=== PATIENT | male | born 1940 | race Caucasian/White ===

== ENCOUNTER 2018-03-01 00:43 | Inpatient (IN) ==
[2018-03-01] MEDS ORDERED: Morphine Inj 4 MG/ML Vial IV.PUSH ONE (02:49)
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
[2018-03-01] MEDS ORDERED: Morphine Inj 4 MG/ML Vial IV.PUSH PRN (04:25)
--- NOTE | 2018-03-01 06:26 | MR ---
EXAM DATE: 03/01/2018 6:07 AM EDT AGE/SEX: 77 years / Male INDICATIONS: Fracture. Fall. CLINICAL DATA: This is the patient's initial encounter. Patient reports that signs and symptoms have been present for 1 day and indicates a pain score of 6/10. MEDICAL/SURGICAL HISTORY: Hypertension. CABG. Cholecystectomy. COMPARISON: No prior exams available for comparison. TECHNIQUE: Multiplanar, multisequence MRI of the thoracic spine was performed. FINDINGS: Vertebrae: Multilevel osteophyte formation. There is disc space narrowing of moderate severity at T11 -12 with slight nonacute wedging of the T11 vertebral body. The spinal canal is widely patent. There is perivertebral edema, and abnormal increased T2 signal within the anterior one half of the T7-8 int ervertebral disc space. There is a linear cleft of increased T2 signal seen on sagittal image 5 of se paloma 8 through the anterior longitudinal ligament. T1-T2: The thecal sac has a normal diameter. No evidence of disc bulge or protrusion. T2-T3: The thecal sac has a normal diameter. No evidence of disc bulge or protrusion. T3-T4: The thecal sac has a normal diameter. No evidence of disc bulge or protrusion. T4-T5: The thecal sac has a normal diameter. No evidence of disc bulge or protrusion. T5-T6: The thecal sac has a normal diameter. No evidence of disc bulge or protrusion. T6-T7: The thecal sac has a normal diameter. No evidence of disc bulge or protrusion. T7-T8: The thecal sac has a normal diameter. No evidence of disc bulge or protrusion. T8-T9: The thecal sac has a normal diameter. No evidence of disc bulge or protrusion. T9-T10: The thecal sac has a normal diameter. No evidence of disc bulge or protrusion. T10-T11: Moderate facet and ligamentum flavum hypertrophic changes are seen with moderate to severe canal stenosis. There is moderate right foraminal narrowing. T11-T12: Mild diffuse disc osteophyte complex with no canal or foraminal narrowing. T12-L1: The thecal sac has a normal diameter. No evidence of disc bulge or protrusion. CONCLUSION: 1. There is perivertebral edema, and interruption of the anterior longitudinal ligament focally at t he T7-8 level with fluid signal extending into the anterior one half of the intervertebral disc space . There is also trace facet joint fluid at T7-8 bilaterally. 2. Nonacute slight wedging of the T11 vertebral body. 3. Canal stenosis of moderate severity at T10-11 secondary to prominent facet and ligamentum flavum hypertrophic changes. Electronically signed by: Albert Peters MD 03/01/2018 6:24 AM EDT
--- NOTE | 2018-03-01 06:28 | MR ---
EXAM DATE: 03/01/2018 6:22 AM EDT AGE/SEX: 77 years / Male INDICATIONS: Fracture. Fall. CLINICAL DATA: This is the patient's initial encounter. Patient reports that signs and symptoms have been present for 1 day and indicates a pain score of 5/10. MEDICAL/SURGICAL HISTORY: Hypertension. CABG. Cholecystectomy. COMPARISON: No prior exams available for comparison. TECHNIQUE: Multiplanar, multisequence MRI of the lumbar spine was performed without contrast. Patie nt was scanned in a sitting position; neutral, flexion, and extension scans were performed in the sa gittal plane. FINDINGS: The most caudal-appearing lumbar vertebra is numbered as L5. There is diffuse disc desiccation. There is intervertebral disc space calcification at L2-3 and L3-4. Nonacute slight wedging of the T11 vert ebral body identified. There are no acute fractures seen. The bone marrow signal intensity is normal. T12-L1: The thecal sac has a normal diameter. No evidence of disc bulge or protrusion. The neural foramina are patent bilaterally. L1-L2: The thecal sac has a normal diameter. No evidence of disc bulge or protrusion. The neural foramina are patent bilaterally. L2-L3: Elevated trace disc bulge and moderate facet and ligamentum flavum hypertrophy with mild lef t foraminal narrowing. L3-L4: Mild diffuse disc bulge and facet and ligamentum flavum hypertrophy with mild bilateral fora qi narrowing. L4-L5: L5 1 diffuse disc bulge is present. There is moderate facet and ligamentum flavum hypertroph y. There is mild abutment of the L4 exiting nerves and there is moderate bilateral foraminal stenosis . L5-S1: Mild disc bulge and severe facet arthropathy. No significant canal stenosis. Severe right fo raminal narrowing with abutment of the L5 exiting nerves. CONCLUSION: 1. Degenerative changes are seen with no evidence for acute fracture. 2. Nonacute slight wedging of the T11 vertebral body. Electronically signed by: Albert Peters MD 03/01/2018 6:27 AM EDT
[2018-03-01] MEDS: Sod Chloride 0.9% Inj 1,000 ML IV.CONT SCH ×2 (06:41→21:21)
[2018-03-01] MEDS: Meloxicam 15 MG Tablet PO SCH (09:53)
[2018-03-01] MEDS: Budesonide-Formoterol 80/4.5 MCG 6.9 GM Inhaler INH SCH ×2 (09:55→21:22)
[2018-03-01] MEDS: Famotidine 20 MG Tablet PO SCH ×2 (09:56→21:11)
[2018-03-01] MEDS: Furosemide 20 MG Tablet PO SCH (09:57)
[2018-03-01] MEDS: Finasteride 5 MG Tablet PO SCH (09:57)
[2018-03-01] MEDS: Metoprolol Tartrate 50 MG Tablet PO SCH ×2 (09:58→21:11)
[2018-03-01] MEDS: Senna/Docusate Sodium 8.6/50 MG Tablet PO SCH ×2 (09:58→21:11)
[2018-03-01] MEDS: Morphine Inj 4 MG/ML Vial IV.PUSH PRN ×3 (12:16→21:11)
[2018-03-01] MEDS: Montelukast 10 MG Tablet PO SCH (17:26)
--- NOTE | 2018-03-01 20:13 | P.CONNS ---
History of Present Illness Service: Neurosurgery Primary Care Provider: UNKNOWN [facility] - History History Provided By: Patient - Medical History Medical History: Medical History (Last Updated 03/01/18 @ 11:10 by Rachele Perez) Cataract (Acute) Ankle fracture (Acute) Shoulder dislocation (Acute) Asthma BPH (benign prostatic hyperplasia) HTN (hypertension) Hypercholesteremia - Surgical History Surgical History: Surgical History (Last Reviewed 03/01/18 @ 11:01 by Rachele Perez) Hx of CABG - Tobacco History Second Hand Smoke Exposure: No Tobacco Use In Past 30 Days: No Smoking Status: Former smoker - Alcohol History How Often Do You Have a Drink Containing Alcohol: Never - Substance Use History Substance History: No History of Abuse - Travel History Recent Travel in the [place] Within the Last 8 Weeks: No Recent Travel Out of the Country Within the Last 8 Weeks: No - Immunization History Tetanus Immunization: Unsure Hx Influenza Vaccine This Season: Yes Medications and Allergies Active Medications: Active Medications Al Hydroxide/Mg Hydroxide (Milk Of Magnesia Liq) 30 ml PO DAILY [facility] Last Admin: 03/01/18 09:59 Dose: Not Given Albuterol (Ventolin Hfa Inh) 2 puff INH Q6H PRN PRN Reason: Shortness Of Breath Aspirin (Ecotrin) 81 mg PO DAILY [facility] Last Admin: 03/01/18 09:57 Dose: 81 mg Budesonide/Formoterol Fumarate (Symbicort 80/4.5 Mcg Inh) 2 puff INH BID [facility] Last Admin: 03/01/18 09:55 Dose: 2 puff Famotidine (Pepcid) 20 mg PO BID [facility] Last Admin: 03/01/18 09:56 Dose: 20 mg Finasteride (Proscar) 5 mg PO DAILY [facility] Last Admin: 03/01/18 09:57 Dose: 5 mg Furosemide (Lasix) 20 mg PO DAILY [facility] Last Admin: 03/01/18 09:57 Dose: Not Given Sodium Chloride (Ns Inj) 1,000 mls @ 70 mls/hr IV.CONT .[id number] [facility] Last Admin: 03/01/18 06:41 Dose: 70 mls/hr Ipratropium Wyatt (Atrovent Neb) 0.5 mg NEB Q6HR NEB PRN PRN Reason: Shortness Of Breath Lactulose (Lactulose Liq) 30 ml PO DAILY PRN PRN Reason: CONSTIPATION Losartan Potassium (Cozaar) 50 mg PO DAILY [facility] Last Admin: 03/01/18 09:57 Dose: 50 mg Meloxicam (Mobic) 15 mg PO DAILY [facility] Last Admin: 03/01/18 09:53 Dose: 15 mg Metoprolol Tartrate (Lopressor) 50 mg PO BID [facility] Last Admin: 03/01/18 09:58 Dose: 50 mg Montelukast Sodium (Singulair) 10 mg PO DAILY@1800 [facility] Last Admin: 03/01/18 17:26 Dose: Not Given Morphine Sulfate (Morphine Inj) 2 mg IV.PUSH Q3H PRN PRN Reason: breakthrough pain Last Admin: 03/01/18 16:39 Dose: 2 mg Oxycodone HCl (Roxicodone) 5 mg PO Q4H PRN PRN Reason: Pain > 3 Last Admin: 03/01/18 19:13 Dose: 5 mg Pravastatin Sodium (Pravachol) 20 mg PO DAILY@1800 [facility] Last Admin: 03/01/18 17:25 Dose: 20 mg Senna/Docusate Sodium (Charla-Colace) 1 tab PO BID [facility] Last Admin: 03/01/18 09:58 Dose: 1 tab Sodium Chloride (Ns Flush) 2 ml IV.FLUSH BID [facility] Last Admin: 03/01/18 09:58 Dose: Not Given Sodium Chloride (Ns Flush) 2 ml IV.FLUSH PRN PRN PRN Reason: FLUSH AFTER USING IV ACCESS Tamsulosin HCl (Flomax) 0.4 mg PO DAILY [facility] Last Admin: 03/01/18 09:58 Dose: 0.4 mg Allergies Allergy/AdvReac Type Severity Reaction Status Date / Time No Known Allergies Allergy Unverified 03/01/18 00:55 Home Medications Medication Instructions Recorded Confirmed Type albuterol sulfate [ProAir HFA] 2 puff INHALATION Q4-6H PRN 03/01/18 03/01/18 History aspirin [Aspirin Low Dose] 81 mg PO DAILY 03/01/18 03/01/18 History finasteride 5 mg PO DAILY 03/01/18 03/01/18 History fluticasone spray INTRANASAL DAILY 03/01/18 History fluticasone-salmeterol [Advair 1 puff INHALATION BID 03/01/18 03/01/18 History Diskus] furosemide 20 mg PO DAILY 03/01/18 03/01/18 History ipratropium bromide 0.5 mg INHALATION Q6-8H PRN 03/01/18 03/01/18 History losartan 50 mg PO DAILY 03/01/18 03/01/18 History lovastatin 20 mg PO QPM 03/01/18 03/01/18 History meloxicam 15 mg PO DAILY 03/01/18 03/01/18 History metoprolol tartrate 50 mg PO BID 03/01/18 03/01/18 History montelukast 10 mg PO QPM 03/01/18 03/01/18 History tamsulosin 0.4 mg PO DAILY 03/01/18 03/01/18 History Exam Vital signs: Vital Signs 03/01/18 00:55 03/01/18 01:01 03/01/18 03:13 Temperature 97.6 F Pulse Rate 82 74 Respiratory Rate 18 18 16 Blood Pressure 179/83 H 184/81 H Pulse Oximetry 95 94 L 03/01/18 04:21 03/01/18 08:00 03/01/18 12:00 Temperature 98.0 F 98.3 F Pulse Rate 62 71 69 Respiratory Rate 18 18 20 Blood Pressure 156/69 H 165/77 H 168/78 H Pulse Oximetry 97 94 L 93 L 03/01/18 16:00 Temperature 97.7 F Pulse Rate 53 L Respiratory Rate 18 Blood Pressure 137/63 Pulse Oximetry 93 L Intake & Output 03/01/18 03/01/18 03/02/18 06:59 18:59 06:59 Intake Total 480 / 480 Balance 480 / 480 Weight 104.78 kg Intake: Oral 480 / 480 Other: # Voids 600 Date of Last Bowel Movement 03/01/18 Assessment and Plan - Plan Impression: Signal intensity changes at T7-8 MRI suspicious for acute injury. However CT findings are somewhat suggestive of more chronic process with vacuum disc and no definite acute fracture through the anterior osteophyte. 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 Plan: Mobilize OOB with TLSO. Thoracic sitting F/E film when able to tolerate
[2018-03-02 06:40] LABS: Baso % (Auto) 0.4 % (0.0-2.0); Hematocrit 41.1 % (39.0-51.0); Hemoglobin 13.7 gm/dL (13.0-17.0); Lymph # (Auto) 1.8 th/mm3 (1.0-4.8); Lymph % (Auto) 21.5 % (9.0-44.0); Mean Corpuscular HGB Conc 33.4 % (32.0-36.0); Mean Corpuscular Volume 92.7 fL (80.0-100.0); Mean Platelet Volume 8.6 fL (7.0-11.0); Mono % (Auto) 11.9 % (0.0-8.0); Neut # (Auto) 5.6 th/mm3 (1.8-7.7); Neut % (Auto) 66.2 % (16.0-70.0); Platelet Count 161 th/mm3 (150-450); Red Blood Count 4.44 mil/mm3 (4.50-5.90); Red Cell Distribution Width 13.5 % (11.6-17.2); White Blood Count 8.5 th/mm3 (4.0-11.0)
[2018-03-02 07:11] LABS: Calcium 7.9 mg/dL (8.5-10.1); Carbon Dioxide 30.4 meq/L (21.0-32.0)
[2018-03-02] MEDS: Morphine Inj 4 MG/ML Vial IV.PUSH PRN ×2 (09:38→18:28)
[2018-03-02] MEDS: Meloxicam 15 MG Tablet PO SCH (09:39)
[2018-03-02] MEDS: Famotidine 20 MG Tablet PO SCH ×2 (09:40→19:59)
[2018-03-02] MEDS: Metoprolol Tartrate 50 MG Tablet PO SCH ×2 (09:40→20:01)
[2018-03-02] MEDS: Furosemide 20 MG Tablet PO SCH (09:40)
[2018-03-02] MEDS: Senna/Docusate Sodium 8.6/50 MG Tablet PO SCH ×2 (09:40→19:59)
[2018-03-02] MEDS: Finasteride 5 MG Tablet PO SCH (09:40)
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
[2018-03-02] MEDS: Sod Chloride 0.9% Inj 1,000 ML IV.CONT SCH (16:00)
[2018-03-02] MEDS: Budesonide-Formoterol 80/4.5 MCG 6.9 GM Inhaler INH SCH ×2 (16:03→20:02)
--- NOTE | 2018-03-02 18:08 | P.PNNS ---
Subjective Interval history: Ambulated in [place] with PT with very little pain. No LE symptoms or B/B problems. Physical Exam Vital signs: Vital Signs 03/01/18 20:00 03/01/18 22:16 03/02/18 00:00 Temperature 97.8 F 97.6 F Pulse Rate 52 L 78 54 L Respiratory Rate 18 14 20 Blood Pressure 152/78 H 160/76 H Pulse Oximetry 93 L 91 L 03/02/18 03:01 03/02/18 04:00 03/02/18 06:00 Temperature 97.9 F Pulse Rate 54 L 54 L Respiratory Rate 18 18 Blood Pressure 139/69 Pulse Oximetry 92 L 03/02/18 08:00 03/02/18 09:57 03/02/18 12:00 Temperature 97.9 F 98.0 F Pulse Rate 52 L 60 52 L Respiratory Rate 18 16 17 Blood Pressure 184/86 H 156/65 H Pulse Oximetry 95 93 L 03/02/18 16:00 Temperature 97.6 F Pulse Rate 52 L Respiratory Rate 19 Blood Pressure 111/63 Pulse Oximetry 93 L Intake & Output 03/01/18 03/02/18 03/02/18 18:59 06:59 18:59 Intake Total 480 / 480 1360 / 1360 1000 / 1000 Output Total 800 / 800 Balance 480 / 480 560 / 560 1000 / 1000 Weight 104.7 kg Intake: IV 1000 / 1000 1000 / 1000 NS Inj 1,000 ML @ 70 mls/hr IV. 1000 / 1000 1000 / 1000 CONT .[id number] TRACI Rx#:[id number] Oral 480 / 480 360 / 360 Output: Urine 800 / 800 Other: # Voids 600 Date of Last Bowel Movement 03/01/18 Narrative: Lower extremity sensorimotor intact. Up in chair with brace Assessment and Plan - Plan Impression: Signal intensity changes at T7-8 MRI suspicious for acute injury. However CT findings are somewhat suggestive of more chronic process with vacuum disc and no definite acute fracture through the anterior osteophyte. 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 Plan: Doing well with PT Ok discharge home with F/U in next week with signal circuit designer. Advised F/E films in next 7-10 days.
[2018-03-02] MEDS: Montelukast 10 MG Tablet PO SCH (18:27)
[2018-03-03] MEDS: Sod Chloride 0.9% Inj 1,000 ML IV.CONT SCH (05:08)
[2018-03-03] MEDS: Morphine Inj 4 MG/ML Vial IV.PUSH PRN (05:11)
[2018-03-03] MEDS: Meloxicam 15 MG Tablet PO SCH (08:53)
[2018-03-03] MEDS: Furosemide 20 MG Tablet PO SCH (08:54)
[2018-03-03] MEDS: Senna/Docusate Sodium 8.6/50 MG Tablet PO SCH (08:54)
[2018-03-03] MEDS: Finasteride 5 MG Tablet PO SCH (08:55)
[2018-03-03] MEDS: Famotidine 20 MG Tablet PO SCH (08:55)
[2018-03-03] MEDS: Metoprolol Tartrate 50 MG Tablet PO SCH (08:56)
[2018-03-03] MEDS: Budesonide-Formoterol 80/4.5 MCG 6.9 GM Inhaler INH SCH (08:57)
[2018-03-03 10:29] VITALS: PULSE 49
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
[2018-03-03 14:28] VITALS: BP 120/58; RESP 20; TEMP 97.7; O2SAT 92
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
== END 2018-03-03 15:10 | disposition home or self-care (01) ==
LOC: NEPC 00:43 → NEDA 02:16 → N05 06:32
PROVIDERS: ADMIT Surgery; ATTEND Surgery